=== PATIENT | male | born 1995 | race Hispanic/Latino ===

== ENCOUNTER → 2024-02-28 | Day surgery (SDC) | payer BC ==
[~2024-02-28] MED LIST: ACETAMINOPHEN-1 EAC4 PO; BUPIVACAINE HCL 0.5% INJ 30 ML VIAL INJ ONE; DEXAMETHASONE SOD PHOS INJ 4 MG/ML SDV ONE; FENTANYL CITRATE/PF 100MCG/2 ML INJ ONE; LACTATED RINGER'S 1,000 ML BAG ONE; LACTATED RINGER'S 1,000 ML INJ ONE; LACTATED RINGER'S 1,000 ML ONE; LIDOCAINE HCL 2% LOCAL 20 ML VIAL ONE; LIDOCAINE HCL 2% LOCAL INJ 5 ML SDV VIAL INJ ONE; MIDAZOLAM HCL 2 MG/2 ML VIAL ONE; MUPIROCIN 2% OINT 22 GM TUBE ONE; ONDANSETRON HCL INJ 2MG/ML 2ML 2 MG/ML VIAL ONE; PROPOFOL IV EMULSION 10 MG/ML 20 ML VIAL ONE; ROPIVACAINE 0.5% 5 MG/ML 30 ML SDV ONE; Sodium Chloride 0.9% 50ML Bag ONE
[2024-02-28 08:38] VITALS: TEMP 97.3
[2024-02-28 09:28] VITALS: BP 121/66; PULSE 73; RESP 16; O2SAT 99
== END | disposition home or self-care (01) ==
LOC: OR 05:29
PROVIDERS: ATTEND Plastic Surgery
DX: D36.12 Benign neoplasm of peripheral nerves and autonomic nervous system, upper limb, including shoulder (principal); F17.220 Nicotine dependence, chewing tobacco, uncomplicated
CPT/HCPCS: 64999; 88307; 88342; J0690; J1100; J2001 ×2; J2250; J2405; J2704; J2795; J3010; J7121; 88304